=== PATIENT | male | born 1975 | race American Indian/Alaskan Native ===

== ENCOUNTER 2016-08-05 17:58 | Inpatient (IN) | payer OTHER ==
[2016-08-05 17:58] VITALS: BMI 36.9
[2016-08-05 19:08] LABS: RBC URINE < 1 /hpf (0-3); URINE BILIRUBIN NEGATIVE (NEGATIVE); URINE BLOOD NEGATIVE (NEGATIVE); URINE COLOR Yellow (YELLOW); URINE GLUCOSE (UA) NORMAL (Normal); URINE KETONE NEGATIVE (NEGATIVE); URINE LEUKOCYTE ESTERASE NEG Leu/uL (Negative); URINE PROTEIN NEGATIVE (NEGATIVE); URINE UROBILINOGEN NORMAL mg/dL (0.2-1.0); WBC URINE < 1 /hpf (0-5)
[2016-08-05] MEDS ORDERED: Sodium Chloride 0.9% 1,000 ML IV ONE (19:15)
--- NOTE | 2016-08-05 19:15 | C.PDOC ---
History Of Present Illness Patient presents to the ER with a complaint of intermittent suprapubic discomfort for the last week which has worsened over the last few days and has become continuous today. Denies fever, chills, vomiting, nausea and diarrhea. Time Seen by Provider: 08/05/16 19:15 Chief Complaint (Nursing): Abdominal Pain History Per: Patient History/Exam Limitations: no limitations Onset/Duration Of Symptoms: Days (last week), Intermittent Episodes Current Symptoms Are (Timing): Still Present Severity: Moderate Pain Scale Rating Of: 5 Location Of Pain/Discomfort: Suprapubic Radiation Of Pain To:: None Quality Of Discomfort: Unable To Describe Associated Symptoms: denies: Fever, Chills, Nausea, Vomiting, Diarrhea Exacerbating Factors: None Alleviating Factors: None Recent travel outside of the [place]: No Past Medical History Reviewed: Historical Data, Nursing Documentation, Vital Signs Vital Signs: Last Vital Signs Temp 99.6 F 08/05/16 20:49 Pulse 74 08/05/16 18:32 Resp 20 08/05/16 18:32 BP 124/80 08/05/16 18:32 Pulse Ox 98 08/05/16 19:32 - Medical History PMH: Sleep Apnea Surgical History: No Surg Hx Family History: States: Unknown Family Hx - Social History Hx Tobacco Use: No Hx Alcohol Use: No Hx Substance Use: No - Immunization History Hx Tetanus Toxoid Vaccination: No Hx Influenza Vaccination: No Hx Pneumococcal Vaccination: No Review Of Systems Constitutional: Negative for: Fever, Chills ENT: Negative for: Throat Pain Cardiovascular: Negative for: Chest Pain Gastrointestinal: Positive for: Abdominal Pain (Suprapubic). Negative for: Nausea, Vomiting, Diarrhea Genitourinary: Negative for: Dysuria Musculoskeletal: Negative for: Back Pain Skin: Negative for: Rash, Lesions, Jaundice, Bruising Neurological: Negative for: Weakness Psych: Negative for: Anxiety Physical Exam - Physical Exam Appears: Non-toxic Skin: Warm, Dry Head: Normacephalic Eye(s): bilateral: Normal Inspection Oral Mucosa: Moist Neck: Trachea Midline, Supple Chest: Symmetrical, No Tenderness Cardiovascular: Rhythm Regular, No Murmur Respiratory: No Rales, No Rhonchi, No Wheezing Gastrointestinal/Abdominal: Tenderness (RLQ, radiating to suprapubic area), Guarding (Mild, voluntary), Rebound (Minimal) Back: Normal Inspection Extremity: Normal ROM Extremity: Bilateral: Atraumatic, Normal Color And Temperature, Normal ROM Neurological/Psych: Oriented x3, Normal Speech, Normal Cognition Gait: Steady ED Course And Treatment - Laboratory Results Result Diagrams: 08/05/16 19:30 08/05/16 19:30 O2 Sat by Pulse Oximetry: 98 (Room air) Pulse Ox Interpretation: Normal Progress Note: Blood work and CT of abd/pel w/ IV contrast ordered. Pepcid IVP, toradol IVP and IV fluids administered. Disposition Discussed With DrKike: Perfecto Mars Comment: accepted the pt on his service and took over the care at 10:08 PM Doctor Will See Patient In The: Hospital Counseled Patient/Family Regarding: Studies Performed, Diagnosis - Disposition Disposition: HOSPITALIZED Disposition Time: 19:15 Condition: FAIR - POA Present On Arrival: None - Clinical Impression Clinical Impression: Abdominal pain, Acute diverticulitis - Scribe Statement The provider has reviewed the documentation as recorded by the Scribe Yury Mullins All medical record entries made by the Scribe were at my direction and personally dictated by me. I have reviewed the chart and agree that the record accurately reflects my personal performance of the history, physical exam, medical decision making, and the department course for this patient. I have also personally directed, reviewed, and agree with the discharge instructions and disposition. Decision To Admit - Pt Status Changed To: Hospital Disposition Of: Inpatient - Admit Certification Admit to Inpatient:: After my assessment, the patient will require hospitalization for at least two midnights. This is because of the severity of symptoms shown, intensity of services needed, and/or the medical risk in this patient being treated as an outpatient. - InPatient: Physician Admission Certification:: After my assessment, the patient will require hospitalization for at least two midnights. This is because of the severity of symptoms shown, intensity of services needed, and/or the medical risk in this patient being treated as an outpatient. - . Bed Request Type: Regular Admitting Physician: Perfecto Mars Patient Diagnosis: Abdominal pain, Acute diverticulitis
[2016-08-05] MEDS ORDERED: Sodium Chloride 0.9% 1,000 ML ONE (19:28)
[2016-08-05 19:37] LABS: BASO # 0.1 K/uL (0.0-0.2); BASO % 0.5 % (0.0-2.0); EOS # 0.2 K/uL (0.0-0.7); EOS % 1.7 % (0.0-4.0); HEMATOCRIT 40.9 % (35.0-51.0); LYMPH # 2.1 K/uL (1.0-4.3); LYMPH % 15.7 % (20.0-40.0); MEAN CELL VOLUME 70.2 fL (80.0-94.0); MEAN CORPUSCULAR HEMOGLOBIN 22.2 pg (27.0-31.0); MEAN CORPUSCULAR HGB CONC 31.7 g/dL (33.0-37.0); MEAN PLATELET VOLUME 8.2 fL (7.2-11.7); MONO # 0.9 K/uL (0.0-0.8); MONO % 6.4 % (0.0-10.0); RED CELL DISTRIBUTION WIDTH 14.3 % (11.5-14.5); WHITE BLOOD COUNT 13.4 K/uL (4.8-10.8)
[2016-08-05 19:44] LABS: CHLORIDE 103 mmol/L (98-107); SODIUM 139 mmol/L (132-148)
[2016-08-05 19:45] LABS: INR 1.2; POTASSIUM 4.1 mmol/L (3.6-5.2)
[2016-08-05 19:47] LABS: ALB/GLOB RATIO 1.3 (1.0-2.1); ALKALINE PHOSPHATASE 62 U/L (38-126); ALT/SGPT 31 U/L (21-72); AST/SGOT 26 U/L (17-59); BILIRUBIN,TOTAL 0.9 mg/dL (0.2-1.3); BLOOD UREA NITROGEN 9 mg/dL (9-20); CALCIUM 8.9 mg/dl (8.6-10.4); CARBON DIOXIDE 22 mmol/L (22-30); GFR AFRICAN-AMERICAN > 60; GLUCOSE,RANDOM 79 mg/dL (75-110); TOTAL PROTEIN 7.9 g/dL (6.3-8.3)
[2016-08-05] MEDS ORDERED: Piperacillin/Tazobact 3.375 gm 100 ML IVPB STA (19:54)
[2016-08-05] MEDS ORDERED: Piperacillin/Tazobact 3.375 gm 100 ML IVPB ONE (20:10)
[2016-08-05] MEDS ORDERED: Iodixanol 320 MG/ML 100 ML BOTTLE IV ONE (20:23)
[2016-08-05] MEDS ORDERED: metroNIDAZOLE IV 500 mg/100 ml 500 MG/100 ML BAG IVPB SCH (22:00)
[2016-08-05] MEDS ORDERED: metroNIDAZOLE IV 500 mg/100 ml 500 MG/100 ML BAG ONE (22:08)
[2016-08-05] MEDS ORDERED: metroNIDAZOLE IV 500 mg/100 ml 500 MG/100 ML BAG IVPB ONE (22:15)
[2016-08-05] MEDS: metroNIDAZOLE IV 500 mg/100 ml 500 MG/100 ML BAG IVPB SCH (22:34)
[2016-08-05] MEDS: Dextrose 5%/0.45% NS 1,000 ML IV SCH (23:29)
[2016-08-06] MEDS: metroNIDAZOLE IV 500 mg/100 ml 500 MG/100 ML BAG IVPB SCH ×2 (05:40→21:52)
[2016-08-06 07:49] VITALS: RESP 20
--- NOTE | 2016-08-06 10:53 | CT ---
PROCEDURE: CT Abdomen and Pelvis with intravenous contrast HISTORY: Abdominal pain COMPARISON: None. TECHNIQUE: Multiple contiguous axial images were performed through the abdomen and pelvis with the use of intravenous contrast. Radiation dose: Total exam DLP = 935 mGy-cm. This CT exam was performed using one or more of the following dose reduction techniques: Automated exposure control, adjustment of the mA and/or kV according to patient size, and/or use of iterative reconstruction technique. FINDINGS: LOWER THORAX: Unremarkable. LIVER: Mild fatty infiltration. Focal fatty sparing adjacent to the ligamentum teres in the medial right and left hepatic lobes. Few scattered too small to characterize low-attenuation lesions in the liver. GALLBLADDER AND BILE DUCTS: Unremarkable. PANCREAS: Unremarkable. No gross lesion or ductal dilatation. SPLEEN: Unremarkable. ADRENALS: Unremarkable. No mass. KIDNEYS AND URETERS: Unremarkable. No hydronephrosis. No solid mass. VASCULATURE: Unremarkable. No aortic aneurysm. BOWEL: Few scattered diverticuli within the colon. Moderate mural thickening of a short segment of the distal descending/ proximal sigmoid colon. Mild stranding within the adjacent fat. APPENDIX: Unremarkable. Normal appendix. PERITONEUM: Trace free fluid within the pelvis. LYMPH NODES: Several subcentimeter short axis mesenteric and retroperitoneal lymph nodes. BLADDER: Unremarkable. REPRODUCTIVE: Unremarkable. BONES: Small posterior disc osteophyte complex at the L5-S1 level. OTHER FINDINGS: Tiny fat containing umbilical hernia. IMPRESSION: Findings concerning for acute diverticulitis versus short segment colitis versus additional etiology of the distal descending/ proximal sigmoid colon. Post treatment followup CT or colonoscopy may be helpful to exclude additional etiologies if clinically indicated. Additional findings as above. These findings were preliminarily reported at 9:20 p.m. on 08/05/[address] Ángel Flynn from [facility].
[2016-08-06] MEDS: Dextrose 5%/0.45% NS 1,000 ML IV SCH ×2 (10:59→18:30)
--- NOTE | 2016-08-06 22:47 | CP.PCM.HP ---
History of Present Illness - History of Present Illness History of Present Illness: CC: left lower quadrant abdominal pain Patient who has h/oo sleep apnea on BIPAP, no significant PMH presents to the ER with a complaint of intermittent LLQ abdominal pain and suprapubic discomfort for the last week which has worsened over the last few days and has become continuous today. Denies fever, chills, vomiting, nausea, meelna, epigastic pain and diarrhea. Present on Admission - Present on Admission Any Indicators Present on Admission: No Review of Systems - Constitutional Constitutional: Chills, Fatigue, Fever, Lethargy, Malaise - EENT Eyes: absent: As Per HPI, Blind Spots, Blurred Vision, Change in Vision, Decreased Night Vision, Diplopia, Discharge, Dry Eye, Exophthalmos, Floaters, Irritation, Itchy Eyes, Loss of Peripheral Vision, Pain, Photophobia, Requires Corrective Lenses, Sees Flashes, Spots in Vision, Tunnel Vision, Other Visual Disturbances, Loss of Vision, Other Ears: absent: As Per HPI, Decreased Hearing, Ear Discharge, Ear Pain, Tinnitus, Abnormal Hearing, Disequilibrium, Dizziness, Other Nose/Mouth/Throat: absent: As Per HPI, Epistaxis, Nasal Congestion, Nasal Discharge, Nasal Obstruction, Nasal Trauma, Nose Pain, Post Nasal Drip, Sinus Pain, Sinus Pressure, Bleeding Gums, Change in Voice, Dental Pain, Dry Mouth, Dysphagia, Halitosis, Hoarsness, Lip Swelling, Mouth Lesions, Mouth Pain, Odynophagia, Sore Throat, Throat Swelling, Tongue Swelling, Facial Pain, Neck Pain, Neck Mass, Other - Gastrointestinal Gastrointestinal: Abdominal Pain. absent: As Per HPI, Belching, Bloating, Change in Bowel Habits, Change in Stool Character, Coffee Ground Emesis, Constipation, Cramping, Diarrhea, Dyspepsia, Dysphagia, Early Satiety, Excessive Flatus, Fecal Incontinence, Heartburn, Hematemesis, Hematochezia, Loose Stools, Melena, Nausea, Odynophagia, Temesmus, Vomiting, Other - Genitourinary Genitourinary: absent: As Per HPI, Change in Urinary Stream, Difficulty Urinating, Dysuria, Flank Pain, Hematuria, Pyuria, Nocturia, Urinary Incontinence, Urinary Frequency, Urinary Hesitance, Urinary Urgency, Voiding Freq/Small Amts, Freq UTI, Hx Renal/Bladder Calculi, Hx /Renal Surgery, Bladder Distension, Other Past Patient History - Infectious Disease Hx of Infectious Diseases: None - Past Medical History & Family History Past Medical History?: Yes - Past Social History Smoking Status: Never Smoked - CARDIAC Hx Cardiac Disorders: No - PULMONARY Hx Respiratory Disorders: Yes Hx Sleep Apnea: Yes - NEUROLOGICAL Hx Neurological Disorder: No - HEENT Hx HEENT Problems: No - RENAL Hx Chronic Kidney Disease: No - ENDOCRINE/METABOLIC Hx Endocrine Disorders: No - HEMATOLOGICAL/ONCOLOGICAL Hx Blood Disorders: No - INTEGUMENTARY Hx Dermatological Problems: No - MUSCULOSKELETAL/RHEUMATOLOGICAL Hx Falls: Yes - GASTROINTESTINAL Hx Gastrointestinal Disorders: Yes Hx Fatty Liver Disease: Yes - GENITOURINARY/GYNECOLOGICAL Hx Genitourinary Disorders: No - PSYCHIATRIC Hx Substance Use: No - SURGICAL HISTORY Hx Surgeries: Yes Hx Tonsillectomy: Yes - ANESTHESIA Hx Anesthesia: Yes Hx Anesthesia Reactions: No Hx Malignant Hyperthermia: No Has any member of the family had a problem w/ anesthesia?: No Meds Home Medications: Home Medication List Medication Instructions Recorded Confirmed Type Ciprofloxacin [Cipro] 500 mg PO BID #14 tab 08/08/16 Rx Famotidine [Pepcid] 20 mg PO DAILY #14 tab 08/08/16 Rx metroNIDAZOLE [Flagyl] 500 mg PO Q8 #21 tab 08/08/16 Rx Allergies/Adverse Reactions: Allergies Allergy/AdvReac Type Severity Reaction Status Date / Time No Known Allergies Allergy Unverified 08/05/16 18:13 Physical Exam - Constitutional Appears: No Acute Distress - Head Exam Head Exam: ATRAUMATIC, NORMAL INSPECTION, NORMOCEPHALIC - Eye Exam Eye Exam: EOMI, Normal appearance, PERRL Pupil Exam: NORMAL ACCOMODATION, PERRL - Respiratory Exam Respiratory Exam: Clear to Auscultation Bilateral, NORMAL BREATHING PATTERN - Cardiovascular Exam Cardiovascular Exam: REGULAR RHYTHM, +S1, +S2 - GI/Abdominal Exam GI & Abdominal Exam: Normal Bowel Sounds, Soft. absent: Tenderness Results - Vital Signs Recent Vital Signs: Last Vital Signs Temp 100 F H 08/06/16 17:21 Pulse 93 H 08/06/16 17:21 Resp 20 08/06/16 17:21 BP 115/70 08/06/16 17:21 Pulse Ox 98 08/06/16 17:21 - Labs Result Diagrams: 08/08/16 07:46 08/08/16 07:46 Assessment & Plan (1) Abdominal pain Status: Acute
[2016-08-07] MEDS: Dextrose 5%/0.45% NS 1,000 ML IV SCH ×3 (00:37→23:06)
[2016-08-07] MEDS: metroNIDAZOLE IV 500 mg/100 ml 500 MG/100 ML BAG IVPB SCH ×2 (05:37→21:30)
[2016-08-07] MEDS ORDERED: Pneumococcal 23-Valent Vaccine IM ONE (10:00)
--- NOTE | 2016-08-07 22:54 | CP.PCM.PN ---
Subjective - Date & Time of Evaluation Date of Evaluation: 08/07/16 Time of Evaluation: 12:09 - Subjective Subjective: Pt seen and examined, is improving, tolerating diet, started on antibiotics Objective - Vital Signs/Intake and Output Vital Signs (last 24 hours): Temp Pulse Resp BP Pulse Ox 98.9 F 95 H 20 111/72 96 08/07/16 11:49 08/07/16 08:02 08/07/16 08:02 08/07/16 08:02 08/07/16 08:02 - Medications Medications: Current Medications Diazepam (Valium) 2 mg PO TID PRN Last Admin: 08/06/16 11:00 Dose: 2 mg Heparin Sodium (Porcine) (Heparin) 5,000 units SC Q8 [facility] Last Admin: 08/07/16 21:29 Dose: 5,000 units Dextrose/Sodium Chloride (Dextrose 5%/0.45% Ns 1000 Ml) 1,000 mls @ 100 mls/hr IV .Q10H [facility] Last Admin: 08/07/16 04:32 Dose: Not Given Metronidazole (Flagyl) 500 mg in 100 mls @ 100 mls/hr IVPB Q8 [facility] Last Admin: 08/07/16 21:30 Dose: 100 mls/hr Ceftriaxone Sodium 1 gm/ (Sodium Chloride) 100 mls @ 100 mls/hr IVPB DAILY [facility] Last Admin: 08/07/16 10:17 Dose: 100 mls/hr Morphine Sulfate (Morphine) 2 mg IVP Q4 PRN PRN Reason: Pain, moderate (4-7) Last Admin: 08/07/16 22:04 Dose: 2 mg Ondansetron HCl (Zofran Inj) 4 mg IVP Q4 PRN PRN Reason: Nausea/Vomiting - Labs Labs: PT 14.0 SECONDS (9.7-12.2) H 08/05/16 19:30 INR 1.2 08/05/16 19:30 APTT 31 SECONDS (21-34) 08/05/16 19:30 - Constitutional Appears: No Acute Distress - Head Exam Head Exam: ATRAUMATIC, NORMAL INSPECTION, NORMOCEPHALIC - Eye Exam Eye Exam: EOMI, Normal appearance, PERRL Pupil Exam: NORMAL ACCOMODATION, PERRL - Respiratory Exam Respiratory Exam: Clear to Ausculation Bilateral, NORMAL BREATHING PATTERN - Cardiovascular Exam Cardiovascular Exam: REGULAR RHYTHM, +S1, +S2. absent: Murmur - Neurological Exam Neurological Exam: Alert, Awake, CN II-XII Intact, Normal Gait, Oriented x3 - Psychiatric Exam Psychiatric exam: Normal Affect, Normal Mood - Skin Skin Exam: Dry, Intact, Normal Color, Warm Assessment and Plan (1) Abdominal pain Status: Acute
[2016-08-08] MEDS: Dextrose 5%/0.45% NS 1,000 ML IV SCH ×2 (00:30→10:41)
[2016-08-08] MEDS: metroNIDAZOLE IV 500 mg/100 ml 500 MG/100 ML BAG IVPB SCH ×2 (06:00→13:24)
[2016-08-08 08:06] LABS: BASO % 0.6 % (0.0-2.0); EOS # 0.2 K/uL (0.0-0.7); EOS % 3.5 % (0.0-4.0); LYMPH # 1.4 K/uL (1.0-4.3); LYMPH % 22.2 % (20.0-40.0); MEAN CELL VOLUME 70.1 fL (80.0-94.0); MEAN CORPUSCULAR HEMOGLOBIN 22.4 pg (27.0-31.0); MONO # 0.5 K/uL (0.0-0.8); MONO % 7.9 % (0.0-10.0); RED CELL DISTRIBUTION WIDTH 14.4 % (11.5-14.5); WHITE BLOOD COUNT 6.5 K/uL (4.8-10.8)
[2016-08-08 08:11] LABS: CHLORIDE 103 mmol/L (98-107); POTASSIUM 4.1 mmol/L (3.6-5.2); SODIUM 138 mmol/L (132-148)
[2016-08-08 08:14] LABS: BLOOD UREA NITROGEN 5 mg/dL (9-20); CARBON DIOXIDE 24 mmol/L (22-30); GFR AFRICAN-AMERICAN > 60; GLUCOSE,RANDOM 92 mg/dL (75-110)
[2016-08-08 08:15] LABS: CALCIUM 8.7 mg/dl (8.6-10.4)
[2016-08-08 15:46] VITALS: BP 131/81; PULSE 96; TEMP 99.1; O2SAT 99
--- NOTE | 2016-08-08 16:33 | CP.PCM.PN ---
Subjective - Date & Time of Evaluation Date of Evaluation: 08/08/16 Time of Evaluation: 10:50 - Subjective Subjective: Pt seen today , states abdominal pain improved and tolerated liquid diet without any problems , denies any N/V/D diet advanced to regular at lunch time and tolerated without abdominal pain and nausea a febrile Objective - Vital Signs/Intake and Output Vital Signs (last 24 hours): Temp Pulse Resp BP Pulse Ox 99.1 F 96 H 20 131/81 99 08/08/16 15:00 08/08/16 15:00 08/08/16 15:00 08/08/16 15:00 08/08/16 15:00 Intake and Output: 08/08/16 08/08/16 06:59 18:59 Intake Total 2270 1050 Balance 2270 1050 - Medications Medications: Current Medications Diazepam (Valium) 2 mg PO TID PRN Last Admin: 08/06/16 11:00 Dose: 2 mg Heparin Sodium (Porcine) (Heparin) 5,000 units SC Q8 [facility] Last Admin: 08/08/16 13:25 Dose: 5,000 units Dextrose/Sodium Chloride (Dextrose 5%/0.45% Ns 1000 Ml) 1,000 mls @ 100 mls/hr IV .Q10H [facility] Last Admin: 08/08/16 10:41 Dose: 100 mls/hr Metronidazole (Flagyl) 500 mg in 100 mls @ 100 mls/hr IVPB Q8 [facility] Last Admin: 08/08/16 13:24 Dose: 100 mls/hr Ceftriaxone Sodium 1 gm/ (Sodium Chloride) 100 mls @ 100 mls/hr IVPB DAILY [facility] Last Admin: 08/08/16 10:41 Dose: 100 mls/hr Morphine Sulfate (Morphine) 2 mg IVP Q4 PRN PRN Reason: Pain, moderate (4-7) Last Admin: 08/07/16 22:04 Dose: 2 mg Ondansetron HCl (Zofran Inj) 4 mg IVP Q4 PRN PRN Reason: Nausea/Vomiting - Labs Labs: 08/08/16 07:46 08/08/16 07:46 PT 14.0 SECONDS (9.7-12.2) H 08/05/16 19:30 INR 1.2 08/05/16 19:30 APTT 31 SECONDS (21-34) 08/05/16 19:30 - Constitutional Appears: No Acute Distress - Respiratory Exam Respiratory Exam: NORMAL BREATHING PATTERN - Cardiovascular Exam Cardiovascular Exam: REGULAR RHYTHM - GI/Abdominal Exam GI & Abdominal Exam: Soft, Normal Bowel Sounds Assessment and Plan - Assessment and Plan (Free Text) Assessment: A/P 40 yr old male admitted for abdominal pain vss- stable a febrile CT scan -Findings concerning for acute diverticulitis versus short segment colitis versus additional etiology of the distal descending/ proximal sigmoid colon. Post treatment followup CT or colonoscopy may be helpful to exclude additional etiologies if clinically indicated. Pt treated with flagy and rocephin and clinically improved D/W Jerad Moody, stable for discharge home today and f/u wiht PMD and GI for f/ u Pt states he has already appointment with GI in august 29 Pt instructed to returns to ED if symptoms returns or any other concerning symptoms RX given for 7 more days of flagyl and cipro
--- NOTE | 2016-08-08 23:36 | CP.PCM.DIS ---
Provider - Provider Date of Admission: 08/05/16 22:09 Attending physician: Perfecto Mars MD Time Spent in preparation of Discharge (in minutes): 30 Diagnosis - Discharge Diagnosis (1) Abdominal pain Status: Acute Hospital Course - Lab Results Lab Results: Most Recent Lab Values WBC 6.5 K/uL (4.8-10.8) D 08/08/16 07:46 RBC 5.85 Mil/uL (4.40-5.90) 08/08/16 07:46 Hgb 13.1 g/dL (12.0-18.0) 08/08/16 07:46 Hct 41.0 % (35.0-51.0) 08/08/16 07:46 MCV 70.1 fL (80.0-94.0) L 08/08/16 07:46 MCH 22.4 pg (27.0-31.0) L 08/08/16 07:46 MCHC 32.0 g/dL (33.0-37.0) L 08/08/16 07:46 RDW 14.4 % (11.5-14.5) 08/08/16 07:46 Plt Count 216 K/uL (130-400) 08/08/16 07:46 MPV 8.0 fL (7.2-11.7) 08/08/16 07:46 Neut % (Auto) 65.8 % (50.0-75.0) 08/08/16 07:46 Lymph % (Auto) 22.2 % (20.0-40.0) 08/08/16 07:46 [place] % (Auto) 7.9 % (0.0-10.0) 08/08/16 07:46 Eos % (Auto) 3.5 % (0.0-4.0) 08/08/16 07:46 Baso % (Auto) 0.6 % (0.0-2.0) 08/08/16 07:46 Neut # 4.3 K/uL (1.8-7.0) 08/08/16 07:46 Lymph # 1.4 K/uL (1.0-4.3) 08/08/16 07:46 [place] # 0.5 K/uL (0.0-0.8) 08/08/16 07:46 Eos # 0.2 K/uL (0.0-0.7) 08/08/16 07:46 Baso # 0.0 K/uL (0.0-0.2) 08/08/16 07:46 PT 14.0 SECONDS (9.7-12.2) H 08/05/16 19:30 INR 1.2 08/05/16 19:30 APTT 31 SECONDS (21-34) 08/05/16 19:30 Sodium 138 mmol/L (132-148) 08/08/16 07:46 Potassium 4.1 mmol/L (3.6-5.2) 08/08/16 07:46 Chloride 103 mmol/L (98-107) 08/08/16 07:46 Carbon Dioxide 24 mmol/L (22-30) 08/08/16 07:46 Anion Gap 15 (10-20) 08/08/16 07:46 BUN 5 mg/dL (9-20) L 08/08/16 07:46 Creatinine 0.9 MG/DL (0.8-1.5) 08/08/16 07:46 Est GFR ( Amer) > 60 08/08/16 07:46 Est GFR (Non-Af Amer) > 60 08/08/16 07:46 Random Glucose 92 mg/dL (75-110) 08/08/16 07:46 Calcium 8.7 mg/dl (8.6-10.4) 08/08/16 07:46 Total Bilirubin 0.9 mg/dL (0.2-1.3) 08/05/16 19:30 AST 26 U/L (17-59) 08/05/16 19:30 ALT 31 U/L (21-72) 08/05/16 19:30 Alkaline Phosphatase 62 U/L (38-126) 08/05/16 19:30 Total Protein 7.9 g/dL (6.3-8.3) 08/05/16 19:30 Albumin 4.5 g/dL (3.5-5.0) 08/05/16 19:30 Globulin 3.4 gm/dL (2.2-3.9) 08/05/16 19:30 Albumin/Globulin Ratio 1.3 (1.0-2.1) 08/05/16 19:30 Lipase 38 U/L (23-300) 08/05/16 19:30 Urine Color Yellow (YELLOW) 08/05/16 18:44 Urine Clarity Clear (Clear) 08/05/16 18:44 Urine pH 5.0 (5.0-8.0) 08/05/16 18:44 Ur Specific [place] 1.018 (1.003-1.030) 08/05/16 18:44 Urine Protein Negative mg/dL (NEGATIVE) 08/05/16 18:44 Urine Glucose (UA) Normal mg/dL (Normal) 08/05/16 18:44 Urine Ketones Negative mg/dL (NEGATIVE) 08/05/16 18:44 Urine Blood Negative (NEGATIVE) 08/05/16 18:44 Urine Nitrate Negative (NEGATIVE) 08/05/16 18:44 Urine Bilirubin Negative (NEGATIVE) 08/05/16 18:44 Urine Urobilinogen Normal mg/dL (0.2-1.0) 08/05/16 18:44 Ur Leukocyte Esterase Neg Herbert/uL (Negative) 08/05/16 18:44 Urine WBC (Auto) < 1 /hpf (0-5) 08/05/16 18:44 Urine RBC (Auto) < 1 /hpf (0-3) 08/05/16 18:44 - Hospital Course Hospital Course: Pt seen today , states abdominal pain improved and tolerated liquid diet without any problems , denies any N/V/D diet advanced to regular at lunch time and tolerated without abdominal pain and nausea a febrile Discharge Exam - Head Exam Head Exam: ATRAUMATIC, NORMAL INSPECTION, NORMOCEPHALIC - Eye Exam Eye Exam: EOMI - ENT Exam ENT Exam: Mucous Membranes Moist - Respiratory Exam Respiratory Exam: Clear to PA & Lateral, NORMAL BREATHING PATTERN - Cardiovascular Exam Cardiovascular Exam: REGULAR RHYTHM, +S1, +S2 - GI/Abdominal Exam GI & Abdominal Exam: Normal Bowel Sounds Discharge Plan - Discharge Medications Prescriptions: Ciprofloxacin [Cipro] 500 mg PO BID #14 tab metroNIDAZOLE [Flagyl] 500 mg PO Q8 #21 tab Famotidine [Pepcid] 20 mg PO DAILY #14 tab - Follow Up Plan Condition: FAIR Disposition: HOME/ ROUTINE Instructions: Ciprofloxacin (By mouth), Famotidine (By mouth), Metronidazole ( By mouth), Diverticulitis (DC), Acute Abdominal Pain (DC), Acute Abdominal Pain (GEN) Additional Instructions: Please f/u with Dr. Izquierdo (PMD) in 1 week F/u with GI - (Moe has appointment) Continue antibiotics for 1 week resume all home medications
== END 2016-08-08 17:30 | disposition home or self-care (01) | DRG 392 ==
LOC: C.ER 17:58 → C.9E 22:09 → C.3T 22:55
PROVIDERS: ADMIT Internal Medicine; ATTEND Internal Medicine
DX: R10.32 Left lower quadrant pain (principal); G47.30 Sleep apnea, unspecified

== ENCOUNTER 2017-12-08 15:46 | Emergency (ER) | payer OTHER ==
[2017-12-08 15:46] VITALS: BMI 36.9
[2017-12-08 16:01] VITALS: TEMP 98.2; O2SAT 98
[2017-12-08 16:25] VITALS: RESP 16
[2017-12-08 16:28] LABS: BASO # 0.1 K/uL (0.0-0.2); BASO % 1.2 % (0.0-2.0); EOS # 0.3 K/uL (0.0-0.7); EOS % 3.5 % (0.0-4.0); HEMOGLOBIN 14.5 g/dL (12.0-18.0); LYMPH # 2.6 K/uL (1.0-4.3); LYMPH % 27.9 % (20.0-40.0); MEAN CELL VOLUME 70.4 fL (80.0-94.0); MEAN CORPUSCULAR HEMOGLOBIN 23.4 pg (27.0-31.0); MEAN CORPUSCULAR HGB CONC 33.2 g/dL (33.0-37.0); MEAN PLATELET VOLUME 7.6 fL (7.2-11.7); MONO # 0.6 K/uL (0.0-0.8); MONO % 6.5 % (0.0-10.0); NEUT # 5.7 K/uL (1.8-7.0); NEUT % 60.9 % (50.0-75.0); NRBC % 0.2 % (0.0-2.0); RBC 6.18 Mil/uL (4.40-5.90); RED CELL DISTRIBUTION WIDTH 14.4 % (11.5-14.5); WHITE BLOOD COUNT 9.4 K/uL (4.8-10.8)
--- NOTE | 2017-12-08 16:34 | RAD ---
Date of service: 12/08/2017 PROCEDURE: CHEST RADIOGRAPH, 1 VIEW HISTORY: chest pain COMPARISON: 01/28/2015 FINDINGS: LUNGS: Clear. PLEURA: No pneumothorax or pleural fluid seen. CARDIOVASCULAR: No radiographic findings to suggest acute or significant cardiovascular disease. OSSEOUS STRUCTURES: No significant abnormalities. VISUALIZED UPPER ABDOMEN: Normal. OTHER FINDINGS: None. IMPRESSION: No active disease. No acute/significant interval changes.
[2017-12-08 16:43] LABS: ALB/GLOB RATIO 1.3 (1.0-2.1); ALBUMIN 4.7 g/dL (3.5-5.0); ALT/SGPT 52 U/L (21-72); AST/SGOT 36 U/L (17-59); BLOOD UREA NITROGEN 19 mg/dL (9-20); CALCIUM 9.9 mg/dl (8.6-10.4); GFR NON-AFRICAN AMERICAN > 60
[2017-12-08 17:14] LABS: T3 2.28 nmol/L (1.49-2.60)
[2017-12-08 17:42] VITALS: BP 136/78; PULSE 70
--- NOTE | 2017-12-08 18:22 | C.PDOC ---
History Of Present Illness 42 y/o male presents to the ED with complaints of feeling anxious, associated with palpitations, onset just prior to arrival. He states symptoms lasted a few minutes and then subsided. No pain. No symptoms at present. Patient has had prior ER visits and work-ups for similar complaint in the past, which were negative. Time Seen by Provider: 12/08/17 15:58 Chief Complaint (Nursing): Shortness Of Breath History Per: Patient History/Exam Limitations: no limitations Onset/Duration Of Symptoms: Mins Current Symptoms Are (Timing): Gone Associated Symptoms: Anxiety Past Medical History Reviewed: Historical Data, Nursing Documentation, Vital Signs Vital Signs: Last Vital Signs Temp 98.2 F 12/08/17 16:00 Pulse 70 12/08/17 17:42 Resp 16 12/08/17 17:42 BP 136/78 12/08/17 17:42 Pulse Ox 98 12/08/17 17:42 - Medical History PMH: Anxiety, Diverticulitis, Sleep Apnea Denies: Chronic Kidney Disease Surgical History: Tonsillectomy Family History: States: Unknown Family Hx - Social History Hx Tobacco Use: No Hx Alcohol Use: No Hx Substance Use: No - Immunization History Hx Tetanus Toxoid Vaccination: No Hx Influenza Vaccination: No Hx Pneumococcal Vaccination: No Review Of Systems Except As Marked, All Systems Reviewed And Found Negative. Constitutional: Negative for: Fever, Chills, Sweats Eyes: Negative for: Vision Change ENT: Negative for: Nose Congestion Cardiovascular: Positive for: Palpitations. Negative for: Chest Pain Respiratory: Negative for: Cough, Shortness of Breath, Wheezing Gastrointestinal: Negative for: Nausea, Vomiting Neurological: Negative for: Weakness, Numbness, Incoordination, Headache, Dizziness Psych: Positive for: Anxiety. Negative for: Suicidal ideation Physical Exam - Physical Exam Appears: Non-toxic, No Acute Distress Skin: Normal Color Head: Atraumatic, Normacephalic Eye(s): bilateral: Normal Inspection, PERRL, EOMI Oral Mucosa: Moist Neck: Normal ROM Chest: Symmetrical Cardiovascular: Rhythm Regular, No Murmur Respiratory: Normal Breath Sounds, No Accessory Muscle Use, No Rales, No Rhonchi, No Wheezing Gastrointestinal/Abdominal: Soft, No Tenderness Extremity: Bilateral: Atraumatic, No Pedal Edema, Normal Color And Temperature Pulses: Left Dorsalis Pedis: Normal, Right Dorsalis Pedis: Normal Neurological/Psych: Oriented x3, Normal Speech Gait: Steady ED Course And Treatment - Laboratory Results Result Diagrams: 12/08/17 16:23 12/08/17 16:23 ECG: Interpreted By Me, Viewed By Me ECG Rhythm: Sinus Tachycardia Rate From EC O2 Sat by Pulse Oximetry: 98 (RA) Pulse Ox Interpretation: Normal - Radiology CXR: Viewed By Me, Read By Radiologist CXR Interpretation: Yes: No Acute Disease Medical Decision Making Medical Decision Making: Impression: Brief episode of anxiety and palpitations Initial Plan: --Blood work w/ cardiac enzymes --EKG --CXR --Reassess and dispo Informed patient of negative studies. On reassessment patient remains AAOx3, afebrile, in no acute distress. Advised to follow up with PMD. Disposition - Disposition Referrals: Terry Valerio, [Non-Staff] - Disposition: HOME/ ROUTINE Disposition Time: 17:15 Condition: GOOD Additional Instructions: ROSALEE ANGELES, thank you for letting us take care of you today. The emergency medical care you received today was directed at your acute symptoms. If you were prescribed any medication, please fill it and take as directed. It may take several days for your symptoms to resolve. Return to the Emergency Department if your symptoms worsen, do not improve, or if you have any other problems. Please contact your doctor or call one of the physicians/clinics you have been referred to that are listed on the Patient Visit Information form that is included in your discharge packet. Bring any paperwork you were given at discharge with you along with any medications you are taking to your follow up visit. Our treatment cannot replace ongoing medical care by a primary care provider outside of the emergency department. Thank you for allowing the [facility] team to be part of your care today. Follow up with your primary care doctor in 2-3 days for re-evaluation and further management. Instructions: Anxiety, Adult (DC) Forms: [employer] (Sami) - Clinical Impression Clinical Impression: Anxiety - Scribe Statement The provider has reviewed the documentation as recorded by the [facility] We[facility] Provider Attestation: All medical record entries made by the Scribe were at my direction and personally dictated by me. I have reviewed the chart and agree that the record accurately reflects my personal performance of the history, physical exam, medical decision making, and the department course for this patient. I have also personally directed, reviewed, and agree with the discharge instructions and disposition.
--- NOTE | 2017-12-11 15:12 | CARD ---
APPROVED REPORT Date of service: 12/08/2017 EKG Measurement Heart [id number] <Conclusion> Sinus tachycardia Otherwise normal ECG
== END 2017-12-08 17:41 | disposition home or self-care (01) ==
LOC: C.ER 15:46
DX: F41.9 Anxiety disorder, unspecified (principal)

== ENCOUNTER 2018-08-08 08:11 | Emergency (ER) | payer OTHER ==
[2018-08-08 08:11] VITALS: BMI 36.9
[2018-08-08] MEDS ORDERED: Naproxen 550 mg Tab PO STA (08:30)
--- NOTE | 2018-08-08 08:30 | C.PDOC ---
History Of Present Illness 42 yo male prestns with right knee pain for months getting worse recently denies any direct trauma/fall. never saw pmd. no fevers or other complains. Time Seen by Provider: 08/08/18 08:21 Chief Complaint (Nursing): Lower Extremity Problem/Injury Past Medical History Reviewed: Historical Data, Nursing Documentation, Vital Signs Vital Signs: Last Vital Signs Temp 98.9 F 08/08/18 08:18 Pulse 85 08/08/18 08:18 Resp 20 08/08/18 08:18 BP Pulse Ox 134 H 08/08/18 08:18 Primary Care Provider: Non [facility] Provider, - Medical History PMH: Anxiety, Diverticulitis, Sleep Apnea Denies: Chronic Kidney Disease Surgical History: Tonsillectomy Family History: States: Unknown Family Hx - Social History Hx Tobacco Use: No Hx Alcohol Use: No Hx Substance Use: No - Immunization History Hx Tetanus Toxoid Vaccination: No Hx Influenza Vaccination: No Hx Pneumococcal Vaccination: No ED Course And Treatment O2 Sat by Pulse Oximetry: 134 Medical Decision Making Medical Decision Making: xr neg as rad by me by. splint given. advise outpt fu. Disposition - Disposition Referrals: [facility] [place] [Outside] [facility] [Outside] Disposition: HOME/ ROUTINE Disposition Time: 08:00 Condition: STABLE Additional Instructions: please follow up with your doctor/clinic. return to er with worsening. Prescriptions: Naproxen 500 mg PO BID PRN #14 tab PRN Reason: Pain, Mild (1-3) Instructions: Knee Sprain (DC) Forms: [employer] (Sinhala) - Clinical Impression Clinical Impression: Knee pain
[2018-08-08] MEDS ORDERED: Naproxen 550 mg Tab PO ONE (08:36)
[2018-08-08 08:49] VITALS: BP 120/84; PULSE 81; RESP 17; TEMP 98.4; O2SAT 97
--- NOTE | 2018-08-08 11:07 | RAD ---
Date of service: 08/08/2018 PROCEDURE: Right Knee Radiographs. HISTORY: knee pain COMPARISON: None. TECHNIQUE: 2 views obtained. FINDINGS: BONES: Normal. No fracture. JOINTS: Normal. No osteoarthritis. JOINT EFFUSION: None. OTHER FINDINGS: None. IMPRESSION: No evidence of acute fracture or dislocation.
== END 2018-08-08 08:45 | disposition home or self-care (01) ==
LOC: C.ER 08:11
DX: M25.561 Pain in right knee (principal)